=== PATIENT | female | born 2000 | race Caucasian/White ===

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

== ENCOUNTER 2022-12-30 00:43 | Emergency (ER) | payer MEDICAID ==
--- NOTE | 2022-12-30 01:43 | ERPHSYRPT ---
- History of Present Illness Source: patient, other (SO) Exam Limitations: no limitations Patient Subjective Stated Complaint: pt states she was walking back into house and tripped on step on porch and fell to her left knee on concrete steps. denies hitting her head or other injuries Triage Nursing Assessment: pt ambulated to room 9 independently with slow steady gait with slight limp. she is able to move all extremities, speaks in complete sentences, resp even and unlabored and is alert and oriented times three. left knee not noted to have deformity, bruising, swelling, but is tender to touch and pt reports it has "swolled up like a balloon". pedal pulse palpable, able to wiggle toes, cap refill good, pt reports numbness to toes but can feel normal sensation on top of foot. Physician History: 22 yo WF cc of L knee pain after falling going up steps at her house before ER arrival. Pain is moderate and worse w weight bearing. Head injury/C,T, L-spine injury/Thoracic injury/abdominal injury/UE injury are all denied. is also denied. Method of Injury: fell Occurred: just prior to arrival Quality: constant, aching Severity of Pain-Max: moderate Severity of Pain-Current: moderate Lower Extremities Pain: knee: left Modifying Factors: Improves With: movement Associated Symptoms: none Allergies/Adverse Reactions: No Known Drug Allergies Allergy (Verified 09/26/19 12:55) Home Medications: ARIPiprazole [Aripiprazole] 10 mg PO DAILY 09/10/19 [History] Fluoxetine HCl 20 mg PO DAILY 09/10/19 [History] Norethindrone-Ethinyl Estrad [Nortrel 7-7-7-28 Tablet] 1 tab PO DAILY 09/10/19 [History] Docusate Sodium 100 mg [Docusate Sodium 100 MG] 100 mg DAILY 09/26/19 [History] Hx Tetanus, Diphtheria Vaccination/Date Given: Yes Hx Influenza Vaccination/Date Given: Yes Hx Pneumococcal Vaccination/Date Given: No Immunizations Up to Date: Yes Travel Risk - International Travel Have you traveled outside of the country in past 3 weeks: No - Coronavirus Screening Are you exhibiting any of the following symptoms?: No Close contact with a COVID-19 positive Pt in past 14-21 Days: No - Vaccine Status Have you recieved a Covid-19 vaccination: Yes Clay Thrower: Pocket - Vaccination Dates Date of 2cond Vaccination (if applicable): 2022 - Review of Systems Constitutional: No Symptoms Eyes: No Symptoms Ears, Nose, & Throat: No Symptoms Respiratory: No Symptoms Cardiac: No Symptoms Abdominal/Gastrointestinal: No Symptoms Genitourinary Symptoms: No Symptoms Skin: No Symptoms Neurological: No Symptoms Psychological: No Symptoms Endocrine: No Symptoms Hematologic/Lymphatic: No Symptoms Immunological/Allergic: No Symptoms - Past Medical History Pertinent Past Medical History: Yes Neurological History: No Pertinent History ENT History: No Pertinent History Cardiac History: No Pertinent History Respiratory History: No Pertinent History Endocrine Medical History: No Pertinent History Musculoskeletal History: No Pertinent History GI Medical History: No Pertinent History History: No Pertinent History Psycho-Social History: Anxiety, Depression Female Reproductive Disorders: No Pertinent History - Past Surgical History Past Surgical History: Yes Neuro Surgical History: No Pertinent History Cardiac: No Pertinent History Respiratory: No Pertinent History Gastrointestinal: Cholecystectomy Genitourinary: No Pertinent History Musculoskeletal: No Pertinent History Female Surgical History: No Pertinent History - Social History Smoking Status: Never smoker Exposure to second hand smoke: No Drug Use: none Patient Lives Alone: No - Female History Hx Last Menstrual Period: Sep 2022 Hx Now: No - Nursing Vital Signs Nursing Vital Signs: Initial Vital Signs Temperature 97.3 F 12/30/22 00:59 Pulse Rate 68 12/30/22 00:59 Respiratory Rate 16 12/30/22 00:59 Blood Pressure 138/87 12/30/22 00:59 O2 Sat by Pulse Oximetry 98 12/30/22 00:59 Pain Scale Pain Intensity 9 WNL - Physical Exam General Appearance: no apparent distress Eyes, Ears, Nose, Throat Exam: normal ENT inspection, TMs normal, pharynx norm al, moist mucous membranes Neck Exam: normal inspection, non-tender, supple (C-spine NTTP) Cardiovascular/Respiratory Exam: normal breath sounds, regular rate/rhythm, heart sounds normal Gastrointestinal/Abdominal Exam: non-tender, soft Back Exam: normal inspection (No T or L-spine TTP) Hips Exam: bilateral: non-tender, normal inspection, normal range of motion, no evidence of injury Legs Exam: bilateral leg: non-tender, normal inspection, normal range of motion, no evidence of injury Knees Exam: left knee: other (L supra-patellar area TTP/Mild edema/No deformity/good pedal pulse, distal sensation, and capillary return) Ankle Exam: bilateral ankle: non-tender, normal inspection, normal range of motion, no evidence of injury Foot Exam: bilateral foot: non-tender, normal inspection, normal range of motion, no evidence of injury Neuro/Tendon Exam: normal sensation, normal motor functions, normal tendon functions, responds to pain, no evidence tendon injury Mental Status Exam: alert, oriented x 3, cooperative Skin Exam: normal color, warm, dry, No rash SpO2 Interpretation: normal SpO2: 98 O2 Delivery: Room Air - Course Nursing assessment & vital signs reviewed: Yes - Radiology Exams Knee X-ray Interpretation: Interpreted by me (L knee negative per ER read) Ordered Tests: Active Orders 24 hr Category Date Time Status Ivan Bandage Application -[facility] STAT Care 12/30/22 01:47 Active KNEE (3 VIEWS) Stat Exams 12/30/22 01:14 Taken Medication Summary Discontinued Medications Generic Name Dose Route Start Last Admin Trade Name Dengq PRN Reason Stop Dose Admin Ibuprofen 400 mg 12/30/22 01:46 12/30/22 01:50 Ibuprofen 400 Mg Tablet PO 12/30/22 01:47 400 mg STAT ONE Administration Ibuprofen Confirm 12/30/22 01:50 Ibuprofen 400 Mg Tablet Administered 12/30/22 01:51 Dose 400 mg .ROUTE .STK-MED ONE - Progress Progress: improved Progress Note: 12/30/22 02:09 Nursing note and vital signs reviewed No food or housing insecurities noted Additional history per SO Pt refused IM Toradol L knee XR neg per ER read 400mg po Motrin Ivan wrap L knee per nursing/NVI Counseled pt/family regarding: diagnosis, need for follow-up, rad results Medical Desision Making - Independent Historian Additional History obtained from: Spouse (Significant other) - Diagnostic Testing Radiological Interpretation: Interpreted by me - Risk of complications Low Risk: Low risk of morbidity from additional dx testing or treatment - Departure Departure Disposition: Home Clinical Impression: Contusion of knee, left Condition: Stable Critical Care Time: No Referrals: PILAR CURTIS MD [Primary Care Provider] - Follow up/PCP as directed Instructions: Contusion (DC) Additional Instructions: Ice for 12-24 hours Motrin/Tylenol for pain Ivan wrap for 2-3 days Weight bearing as tolerated Follow up with your family MD as needed
[2022-12-30] MEDS ORDERED: MOTRIN 400 MG PO ONE (01:46)
[2022-12-30] MEDS ORDERED: MOTRIN 400 MG ONE (01:50)
[2022-12-30 02:04] VITALS: BP 102/73; PULSE 65
[2022-12-30 02:12] VITALS: O2SAT 98
--- NOTE | 2022-12-30 07:34 | XRAY ---
Indication: Pain following fall. Comparison: None 3 view left knee obtained. No bony, articular, or soft tissue abnormalities.
== END 2022-12-30 02:13 | disposition home or self-care (01) ==
LOC: ED 00:43
DX: S80.02XA Contusion of left knee, initial encounter (principal); W10.8XXA Fall (on) (from) other stairs and steps, initial encounter; Y92.007 Garden or yard of unspecified non-institutional (private) residence as the place of occurrence of the external cause; Z79.899 Other long term (current) drug therapy
CPT/HCPCS: 73562; 99283; A9270-GY